=== PATIENT | male | born 1955 | race Asian ===

== ENCOUNTER 2022-02-02 22:52 | Emergency (ER) | payer OTHER, SELFPAY ==
[2022-02-02 22:59] VITALS: BP 165/81; PULSE 74; RESP 18; TEMP 36.8; O2SAT 96
[2022-02-02 23:35] LABS: Bilirubin Negative (Negative); Blood Small (Negative); Clarity Clear (Clear); Glucose Negative (Negative); Ketones Trace mg/dL (Negative); Leukocyte Esterase Negative (Negative); Nitrite Negative (Negative); Specific Gravity 1.015 (1.005-1.025); Urobilinogen 0.2 EU/dL (Up TO 0.2)
--- NOTE | 2022-02-02 23:42 | ED.GENADUL_ITS ---
Discharge Plan Disposition Patient Disposition: HOME Condition: Stable Discharge Details Clinical Impression: Acute urinary retention Primary Care Provider: None,None ED Provider: Malka Sherman Home Meds and New Rx's Prescriptions: Continued tamsulosin [Flomax] 0.4 mg Capsule 0.4 mg PO DAILY ezetimibe 10 mg Tablet 10 mg PO DAILY Discharge Instructions Instructions: Urinary Retention in Men (ED) Additional Instructions: Continue your regular medications including your Flomax as directed. Keep your Cho catheter in place until you follow-up with your urologist this week for re-evaluation and possible cho catheter removal. Return immediately to the emergency department if you develop any worsening or new concerning symptoms. Discharge Data Discharge Date/Time-TO BE ENTERED AT DEPARTURE: 02/03/22 01:06 Discharge Physician: Malka Sherman Medical Decision Making 66-year-old male with a history of hypertension, hyperlipidemia and BPH presents for acute urinary retention from 7 PM. Blood pressure hypertensive but remainder of vitals within normal limits. Bladder scan on arrival per nurse noted 767 cc. Cho catheter placed by nursing with significant improvement in abdominal pressure. He currently denies any complaints of fever, vomiting or abdominal pain. Urinalysis obtained on arrival and notes small amount of blood but no evidence of infection. Patient is traveling back to [place] tomorrow. He states he is followed by urologist for his BPH. Advised to keep his Cho catheter in place for likely next week and follow-up with his urologist for reevaluation and removal. Usual and customary return precautions given prior to discharge. Medical Records Medical records reviewed: Yes I reviewed the patient's medical records. Lab Data Lab results reviewed: Yes I reviewed the patient's lab results. Labs: Laboratory Tests Range/Units 02/02/22 23:25 Urine Color (Yellow) Yellow Urine Clarity (Clear) Clear Urine pH (5-8) 6.0 Ur Specific [place] (1.005-1.025) 1.015 Urine Protein (Negative) mg/dL Negative Urine Ketones (Negative) mg/dL Trace H Urine Blood (Negative) Small H Urine Nitrite (Negative) Negative Urine Bilirubin (Negative) Negative Urine Urobilinogen (Up TO 0.2) EU/dL 0.2 Ur Leukocyte Esterase (Negative) Negative Urine RBC (0-2) HPF 3-5 H Urine WBC (0-5) HPF Negative Ur Epithelial Cells (Negative) HPF Rare Urine Crystals (Negative) HPF Negative Urine Bacteria (Negative) HPF Rare Urine Casts (Negative) LPF Negative Urine Mucus (Negative) Negative Ur Culture Indicated? No Urine Glucose (Negative) mg/dL Negative HPI General Mode of arrival: ambulatory . Date/Time Provider Initiated Documentation: 02/02/22 23:06 . Limitations to Documentation: no limitations . Information obtained by: patient . HPI Narrative: Patient is a 66-year-old male with a history of hypertension, hyperlipidemia and BPH presents for acute urinary retention since this evening. Patient states he traveled from [place] 2 days ago and started developing urinary hesitancy and dribbling. Patient states he has had ongoing issues with difficulty with urination for years but since this evening has been unable to pass any significant amount of urine. He has admitting to suprapubic pressure. He denies any fever, nausea, vomiting, abdominal pain, hematuria or penile disc harge. Related Data Home Medications Medication Instructions Recorded Confirmed ezetimibe 10 mg tablet 10 mg PO DAILY 02/02/22 02/02/22 tamsulosin 0.4 mg capsule (Flomax) 0.4 mg PO DAILY 02/02/22 02/02/22 Allergies Allergy/AdvReac Type Severity Reaction Status Date / Time No Known Allergies Allergy Unverified 02/02/22 23:02 General Stated Complaint: Urinary JOE: 3 Review of Systems All systems reviewed & are unremarkable except as noted in HPI and below Constitutional Constitutional: Reports as per HPI, Denies chills and Denies fever(s) Eyes Eyes: Denies blurry vision ENT Ears, Nose, Mouth, and Throat: Denies dizziness, Denies sore throat and Denies throat swelling Cardiovascular Cardiovascular: Denies chest pain and Denies dyspnea Respiratory Respiratory: Denies cough and Denies dyspnea Gastrointestinal Gastrointestinal: Denies abdominal pain, Denies diarrhea and Denies vomiting Genitourinary Genitourinary: Denies hematuria, Reports difficulty urinating, Denies dysuria, Reports urinary hesitancy and Reports urinary incontinence (dribbling) Musculoskeletal Musculoskeletal: Denies back pain and Denies numbness Integumentary/Breasts Skin/Breast: Denies lesions and Denies rash Neurologic Neurologic: Denies dizziness, Denies localized weakness and Denies numbness Allergic/Immunologic Allergic/Immunologic: Denies throat swelling PFSH All Active Problems (Updated 02/03/22 @ 00:34 by Malka Sherman DO) Acute urinary retention (Acute) Medical History (Updated 02/03/22 @ 00:34 by Malka Sherman DO) BPH (benign prostatic hyperplasia) HTN (hypertension) Hx of hyperlipidemia Surgical History (Updated 02/03/22 @ 00:31 by Malka Sherman DO) History of tonsillectomy Social History Smoking/Tobacco Use Status: Never Smoking risk assessment performed?: Yes Alcohol Intake: current Alcohol Intake frequency: holidays/special occasions only Alcohol type: beer Drug use: Never Substance use type: does not use Do you feel safe at home: Yes Do you feel safe in your relationship?: Yes Exam Const General: cooperative, healthy appearing and no acute distress Orientation: alert, awake and oriented x3 HENMT Head: normal to inspection Mouth: oral mucosae normal Eyes General: appearance normal, both eyes and all related structures Neck Neck: normal visual inspection Resp Effort & Inspection: normal respiratory effort and able to speak in complete sentences Auscultation: clear to auscultation bilaterally Cardio Rate: regular rate Rhythm: regular rhythm GI Palpation: soft, not firm, no guarding, not rigid and nontender Male General Exam: Yes normal external exam Penis: normal penis Scrotum: scrotum normal Skin General skin exam: no rashes or lesions noted Neuro General: patient alert, patient awake and patient oriented x3 Motor: muscle tone normal throughout Extrem General: normal to inspection and full ROM Psych Appearance: grossly normal Affect: normal affect Course Vital Signs Vital signs: Vital Signs Temperature 98.2 F 02/02/22 22:59 Pulse 74 02/02/22 22:59 Respiratory Rate 18 02/02/22 22:59 Blood Pressure 165/81 H 02/02/22 22:59 Pulse Oximetry 96 02/02/22 22:59 Temperature 98.2 F 02/02/22 22:59 Pulse 74 02/02/22 22:59 Respiratory Rate 18 02/02/22 22:59 Respiratory Effort Non-Labored 02/02/22 23:04 Blood Pressure 165/81 H 02/02/22 22:59 Pulse Oximetry 96 02/02/22 22:59 Pain Level 9 02/02/22 22:59
[2022-02-02 23:43] LABS: Bacteria Rare HPF (Negative); C & S Indicated? No; Casts Negative LPF (Negative); Crystals Negative HPF (Negative); Epithelial Cells Rare HPF (Negative); Mucus Negative (Negative); WBC Negative HPF (0-5)
[2022-02-03 00:33] VITALS: BP 160/79; PULSE 62
== END 2022-02-03 01:06 | disposition home or self-care (01) ==
LOC: ER 02-03 00:59
PROVIDERS: Emergency Provider Physician Assistant
DX: R33.9 Retention of urine, unspecified (principal); I10 Essential (primary) hypertension
CPT/HCPCS: 51702; 99283; 81003; 81015; 99282